=== PATIENT | male | born 1980 | race Caucasian/White ===

== ENCOUNTER 2016-12-11 09:48 | Emergency (ER) | payer BC ==
--- NOTE | 2016-12-18 15:15 | ER ---
ADMIT: 12/11/2016 RM/LOC: ER [facility] MR#: [id number] [address] [id number] [place] [address] Emergency Room Report SEX: M AGE: 36 : 1980 DATE: 12/11/2016 This patient comes into the ER because he was chasing after his child when he caught his toe on the sofa. He has pain and swelling on his left fourth digit. He does ambulate. X-ray did show a fracture of the left toe. He was placed in a hard shoe. I wrote a prescription for [place]. He should ice and elevate. He should follow up with his primary as needed. Please see my T- sheet. NICOLETTE Turner / Santy Lindo MD / ravinl JOB #: [id number] CC: Santy Lindo MD, Attending Physician Young Shipley MD, Family Physician
== END 2016-12-11 11:20 | disposition home or self-care (01) ==
LOC: ER 09:48
DX: S92.512A Displaced fracture of proximal phalanx of left lesser toe(s), initial encounter for closed fracture (principal); F17.210 Nicotine dependence, cigarettes, uncomplicated; Z90.89 Acquired absence of other organs; W23.1XXA Caught, crushed, jammed, or pinched between stationary objects, initial encounter; Y92.009 Unspecified place in unspecified non-institutional (private) residence as the place of occurrence of the external cause